=== PATIENT | male | born 1965 | race Caucasian/White ===

== ENCOUNTER 2016-07-01 15:32 | Emergency (ER) | payer BC, OTHER ==
[~2016-07-01] VITALS: Ht 193 cm; Wt 97.1 kg
[2016-07-01 15:40] VITALS: BP 141/96; PULSE 94; RESP 17; TEMP 97.6; O2SAT 99
--- NOTE | 2016-07-01 15:40 | NUR ---
Patient triaged and placed in waiting room. VSS and patient appears in no acute distress at this time. Accompanied by SELF, awaiting available bed, and MD notified of need for MSE.
--- NOTE | 2016-07-01 15:48 | NUR ---
ER MD Sanchez evaluated patient in triage room
--- NOTE | 2016-07-01 15:48 | NUR ---
Bee patino in [facility] - 07/01/16 at 1846 by AYUSH LA Sanchez at [facility] for evaluation
--- NOTE | 2016-07-01 15:50 | NUR ---
Assessed juwan at bedside. Patient states he had noticed hematuria today, pelvic pressure, unable to urinate, diaphoretic. Ambulatory. Will continue to monitor.
--- NOTE | 2016-07-01 16:14 | NUR ---
Patient to ER bed 3 to gown for evaluation. Side rails up. Report given to Joaquin PHILLIPS.
[2016-07-01] MEDS ORDERED: LEVOFLOXACIN 500 MG TABLET PO ONE (17:30)
[2016-07-01 18:33] VITALS: BP 132/68; PULSE 100; RESP 18; TEMP 98.1; O2SAT 100
--- NOTE | 2016-07-01 18:34 | NUR ---
Patient given written and verbal discharge instructions and verbalizes understanding. Dr. Sanchez discussed with patient the results and treatment provided. Given copies of tests performed in ER. Patient in stable condition. ID arm band removed. Rx given. Patient educated on pain management and to follow up with PMD. Pain Scale 0/10. Opportunity for questions provided and answered.
== END 2016-07-01 18:33 | disposition home or self-care (01) ==
LOC: SED 15:32
DX: N45.1 Epididymitis (principal); R03.0 Elevated blood-pressure reading, without diagnosis of hypertension; J45.909 Unspecified asthma, uncomplicated; M19.90 Unspecified osteoarthritis, unspecified site; Z91.013 Allergy to seafood; Z88.5 Allergy status to narcotic agent
CPT/HCPCS: 76870-TC; 99284